=== PATIENT | female | born 2005 | race Caucasian/White ===

== ENCOUNTER 2024-01-23 21:43 | Emergency (ER) | payer OTHER ==
[2024-01-23 22:03] VITALS: BP 146/88; O2SAT 100
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
== END 2024-01-23 23:34 | disposition home or self-care (01) ==
LOC: ED 21:43
DX: S16.1XXA Strain of muscle, fascia and tendon at neck level, initial encounter (principal); V89.2XXA Person injured in unspecified motor-vehicle accident, traffic, initial encounter; Y92.410 Unspecified street and highway as the place of occurrence of the external cause
CPT/HCPCS: 99281; 99283